=== PATIENT | female | born 1995 | race Caucasian/White ===

== ENCOUNTER 2018-03-24 17:05 | Inpatient (IN) | payer MEDICAID, OTHER ==
[~2018-03-24] VITALS: Ht 172.7 cm; Wt 87.4 kg
[2018-03-24 18:26] LABS: Urine Bacteria NONE SEEN /hpf (None Seen); Urine Blood 2+ /uL (Negative); Urine Specific Gravity 1.002 (1.001-1.035); Urine WBC 5 /hpf (0 - 5)
[2018-03-24 18:59] LABS: Basophils # (auto) 0 uL; Basophils % (auto) 0.1 % (0.0-2.0); Eosinophils # (auto) 0 uL; Eosinophils % (auto) 0.1 % (0.0-7.0); Hematocrit 34.7 % (36.0-46.0); Hemoglobin 11.7 g/dL (12.2-16.2); Lymphocytes # (auto) 0.6 uL; Lymphocytes % (auto) 5.1 % (10.0-50.0); Mean Corpuscular Hemoglobin 27.5 pg (28.0-32.0); Mean Corpuscular Hgb Conc. 33.8 g/dL (32.0-36.0); Mean Corpuscular Volume 81.3 fL (80.0-100.0); Monocytes # (auto) 0.8 uL; Monocytes % (auto) 6.3 % (0.0-12.0); Neutrophils # (auto) 10.7 uL; Neutrophils % (auto) 88.4 % (37.0-80.0); Platelet Count (auto) 248 10^3/uL (140-450); Red Blood Cells 4.27 10^6/uL (4.0-5.20); Red Cell Distribution Width 12.8 % (11.8-14.3); White Blood Cell 12.1 10^3/uL (4.4-10.8)
[2018-03-24] MEDS ORDERED: cefTRIAXone 1GM/10ml IVPUSH 10 ML IV ONE (19:15)
[2018-03-24] MEDS ORDERED: metroNIDAZOLE 500MG/100ML 100 ML IV ONE (19:15)
[2018-03-24 19:27] LABS: BUN/Creatinine Ratio 10.1; Bilirubin, Total 0.6 mg/dL (0.2-1.0); Calcium 8.7 mg/dL (8.5-10.1); Potassium 3.6 mmol/L (3.5-5.1); Total Protein 7.9 g/dL (6.4-8.2)
[2018-03-24 22:16] VITALS: BP 102/60
[2018-03-24 22:27] LABS: INR 1.14 (0.9-1.15); Prothrombin Time 12.1 sec (9.27-12.13)
[2018-03-24 22:40] VITALS: BP 102/60
[2018-03-24] MEDS: LACTATED RINGER'S 1,000 ML IV SCH (22:51)
[2018-03-24] MEDS: PIPERACILLIN-TAZOB 3.375GM 100 ML IV SCH (23:40)
[2018-03-25] VITALS (7 sets, daily range): BP systolic 91–102; BP diastolic 51–59
[2018-03-25] MEDS: LACTATED RINGER'S 1,000 ML IV SCH ×3 (04:30→20:30)
[2018-03-25] MEDS: metroNIDAZOLE 500MG/100ML 100 ML IV SCH ×3 (05:15→21:26)
[2018-03-25] MEDS: PIPERACILLIN-TAZOB 3.375GM 100 ML IV SCH ×3 (06:20→17:53)
[2018-03-25] MEDS: ACETAMINOPHEN 325 MG TAB PO PRN ×2 (10:29→18:04)
[2018-03-26] MEDS: PIPERACILLIN-TAZOB 3.375GM 100 ML IV SCH ×5 (00:01→23:40)
[2018-03-26] MEDS: LACTATED RINGER'S 1,000 ML IV SCH ×3 (04:30→22:14)
[2018-03-26] MEDS: metroNIDAZOLE 500MG/100ML 100 ML IV SCH ×3 (05:10→21:39)
[2018-03-26 05:38] VITALS: BP 93/55
[2018-03-26 07:15] VITALS: BP 102/61
[2018-03-26] MEDS ORDERED: ONDANSETRON HCL 4 MG/2 ML VIAL IV PRN ×2 (08:30→15:45)
[2018-03-26 11:58] VITALS: BP 98/53
[2018-03-26] MEDS ORDERED: ONDANSETRON HCL 4 MG/2 ML VIAL IV ONE (14:45)
[2018-03-26] MEDS ORDERED: KETOROLAC TROMETH 30 MG/ML 1ML VIAL IV ONE (14:45)
[2018-03-26] MEDS ORDERED: HYDROmorphone HCL 2 MG/ML VL IV PRN (14:45)
[2018-03-26] MEDS ORDERED: ePHEDrine SULFATE 50 MG/ML AMP IV PRN (14:45)
[2018-03-26] MEDS ORDERED: LABETALOL HCL 5 MG/ML 4ML SYRINGE IV PRN (14:45)
[2018-03-26] MEDS ORDERED: MORPHINE SULFATE 8mg/ml INJ SDV IV PRN (14:45)
[2018-03-26] MEDS ORDERED: MIDAZOLAM HCL 1MG/1ML-2 ML VIAL IV PRN (14:45)
[2018-03-26] MEDS ORDERED: MIDAZOLAM HCL 1MG/1ML-2 ML VIAL ONE (14:51)
[2018-03-26] MEDS ORDERED: fentaNYL CITRATE 100 MCG/2 ML VL ONE (14:51)
[2018-03-26] MEDS ORDERED: DEXAMETHASONE SOD PHOS 10MG/1ML VIAL INJ ONE (15:07)
[2018-03-26] MEDS ORDERED: PROPOFOL 10 MG/ML 20 ML IV ONE (15:07)
[2018-03-26] MEDS ORDERED: MORPHINE SULFATE 8mg/ml INJ SDV IV ONE (16:00)
[2018-03-26 22:20] VITALS: BP 113/66
[2018-03-27] MEDS: LACTATED RINGER'S 1,000 ML IV SCH ×2 (04:54→11:34)
[2018-03-27] MEDS: metroNIDAZOLE 500MG/100ML 100 ML IV SCH ×2 (05:27→14:00)
[2018-03-27 05:32] VITALS: BP 92/51
[2018-03-27] MEDS: PIPERACILLIN-TAZOB 3.375GM 100 ML IV SCH ×2 (05:55→12:29)
[2018-03-27 06:27] LABS: Basophils # (auto) 0 uL; Basophils % (auto) 0.1 % (0.0-2.0); Eosinophils # (auto) 0 uL; Hematocrit 33.5 % (36.0-46.0); Hemoglobin 11.4 g/dL (12.2-16.2); Lymphocytes # (auto) 0.8 uL; Lymphocytes % (auto) 11.5 % (10.0-50.0); Mean Corpuscular Hemoglobin 27.1 pg (28.0-32.0); Mean Corpuscular Hgb Conc. 33.9 g/dL (32.0-36.0); Mean Corpuscular Volume 80.1 fL (80.0-100.0); Monocytes # (auto) 0.3 uL; Monocytes % (auto) 4.6 % (0.0-12.0); Neutrophils # (auto) 5.5 uL; Neutrophils % (auto) 83.8 % (37.0-80.0); Nucleated Red Blood Cells % 0.1 %; Platelet Count (auto) 308 10^3/uL (140-450); Red Blood Cells 4.19 10^6/uL (4.0-5.20); White Blood Cell 6.6 10^3/uL (4.4-10.8)
[2018-03-27 09:00] VITALS: BP 86/52
[2018-03-27 13:00] VITALS: BP 96/50
[2018-03-27 14:35] VITALS: BP 96/56
== END 2018-03-27 15:37 | disposition home or self-care (01) | DRG 544 ==
LOC: ER 17:05 → OVERFLOW 17:06 → WEST WING 22:05
PROVIDERS: ADMIT Specialist; ATTEND Specialist
PROC: 10D17ZZ Extraction of Products of Conception, Retained, Via Natural or Artificial Opening (ICD-10-PCS; principal; 2018-03-26 14:55)
DX: O03.37 Sepsis following incomplete spontaneous abortion (principal); K59.00 Constipation, unspecified; M54.2 Cervicalgia
CPT/HCPCS: 36415; 71046; 76801; 76817; 80053; 81001; 83605; 84443; 84702; 85025; 85610; 85730; 86850; 86900; 86901; 87040; 87076; 96374; J1100; J1885; J2250; J2405; J2543; J2704; J3490